=== PATIENT | male | born 1990 | race Caucasian/White ===

== ENCOUNTER 2020-10-22 14:46 | Emergency (ER) | payer BC, SELFPAY ==
--- NOTE | ~2020-10-22 | CT_ITS ---
EXAMINATION: CT ABDOMEN AND PELVIS WITHOUT CONTRAST CLINICAL INFORMATION: 30-year-old male with flank pain COMPARISON: None TECHNIQUE: Multidetector volumetric imaging was performed from the superior aspect of the liver through the pubic symphysis. Sagittal and coronal reformatted images were obtained on the technologist's workstation. This CT examination was performed using dose optimization techniques as appropriate, variously including the following: *Automated exposure control *Adjustment of mA and/or kV according to patient size (this includes techniques or standardized protocols for targeted exams where dose is matched to indication/reason for exam; i.e. extremities or head) *Use of iterative reconstruction technique DLP: 826 mGy-cm FINDINGS: Visualized lung bases demonstrate minimal dependent atelectasis. The liver is normal in size but demonstrates diffusely decreased attenuation. The gallbladder is normal in appearance. The pancreas, spleen and adrenal glands are unremarkable. Symmetrically sized kidneys. There is minimal left-sided hydronephrosis secondary to a 3 mm calculus within the left ureterovesical junction. 1 mm nonobstructing right renal calculus. No right-sided hydronephrosis appreciated. Ill-defined subcentimeter hypodensity of the right kidney is too small to accurately characterize. Normal caliber loops of small and large bowel. Normal appendix. The bladder is well-distended. The prostate gland is normal in size. No gross free pelvic fluid. No inguinal lymphadenopathy. No acute osseous abnormality. CT/CT abdomen pelvis wo con IMPRESSION: Minimal left-sided hydronephrosis secondary to a 3 mm calculus within the left ureterovesical junction.
[2020-10-22 15:28] VITALS: BP 137/84; PULSE 89; RESP 18; TEMP 36.9; O2SAT 98; BMI 38.9
[2020-10-22 18:08] LABS: Glucose Urine UA NEG (NEG); Leukocyte Esterase Urine NEG (NEG); Nitrite Urine NEG (NEG); Urine Blood 2+ (NEG); Urine Ketones NEG (NEG); Urine Protein 2+ MG/DL (NEG-TRACE)
[2020-10-22 18:09] LABS: Appearance Urine CLOUDY
[2020-10-22 18:10] LABS: Color Urine RED; WBC Urine 0 /HPF (0-4)
[2020-10-22 19:09] LABS: Basophils Percent Auto 0.3 % (0-2); Eosinophils Absolute Auto 0.2 X10*3/uL (0.0-0.4); Eosinophils Percent Auto 1.6 % (0-4); Hematocrit 43.4 % (42-52); Hemoglobin 14.8 g/dl (14.0-18.0); Imm Gran Abs Auto 0.03 X10*3/uL (0.00-0.03); Imm Gran Pct Auto 0.3 % (0.0-0.4); Lymphocytes Absolute Auto 2.8 X10*3/uL (1.2-4.9); Lymphocytes Percent Auto 28.3 % (20-40); MANUAL DIFF FLAG NO; Mean Corpuscular HGB Conc 34.1 g/dl (31.0-36.0); Mean Corpuscular Hemoglobin 29.5 pg (27.0-33.0); Mean Corpuscular Volume 86.6 fL (80-98); Mean Platelet Volume 9.5 fL (9.4-12.4); Monocytes Percent Auto 9.5 % (2-11); Platelet Count 284 X10*3/uL (160-400); Red Blood Count 5.01 X10*6/uL (4.60-5.80); Red Cell Distribution Width 12.6 % (11.0-16.0); White Blood Count 10.1 X10*3/uL (4.8-10.8)
[2020-10-22 19:35] VITALS: BP 121/61; PULSE 81; RESP 16; TEMP 37; O2SAT 99
[2020-10-22 19:40] LABS: Anion Gap 11 (12-20); Blood Urea Nitrogen 16 mg/dL (9-16); Calcium 9.1 mg/dL (8.4-10.2); Carbon Dioxide 28 mmol/L (22-29); Chloride 106 mmol/L (96-108); Creatinine Clr Calc Pharmacy 124.3; Estimated Glomerular Filt Rate > 60; Glucose Random 100 mg/dL (60-115); Potassium 3.8 mmol/L (3.3-5.1); Sodium 141 mmol/L (135-145)
--- NOTE | 2020-10-22 20:18 | PC.NURSE ---
PATIENTS FATHER ASKING WHEN IS HE GOING TO BE SEEN. UPDATED PATIENT AND FATHER. WILL BROOKE TEXT PROVIDER.
[2020-10-22] MEDS: Ketorolac Tromethamine 30 MG/ML VIAL IVPUSH (20:24)
[2020-10-22] MEDS: ondansetron HCL 4 MG/2 ML VIAL IVPUSH (20:24)
[2020-10-22 20:25] VITALS: RESP 16
[2020-10-22] MEDS: 0.9 % Sodium Chloride 1,000 ML 999 ML IV (20:25)
[2020-10-22] MEDS: Morphine Sulfate 4 MG/ML CARTRIDGE IVPUSH (20:25)
--- NOTE | 2020-10-22 20:38 | PC.NURSE ---
PT MED WITH MORPHINE, TORADOL AND ZOFRAN ORDERED FOR PAIN. PT OFF TO CT.
[2020-10-22 21:16] VITALS: RESP 16
--- NOTE | 2020-10-22 21:40 | ED_ITS ---
HPI - Abdominal Pain General Chief Complaint: Abdominal Pain Stated Complaint: BACK PAIN Time Seen by Provider: 10/22/20 20:17 Source: patient Mode of arrival: ambulatory Limitations: no limitations History of Present Illness HPI narrative: Left lower quadrant/left flank pain x1 day Denies past medical or surgical history MD elicited complaint: flank pain Onset (ago): day(s) Pain Consistency: intermittent Severity: severe Pain scale (0-10): 10 Exacerbating factors: nothing Relieving factors: nothing Associated symptoms: denies other symptoms Related Data Previous Rx's Medication Instructions Recorded ibuprofen 800 mg PO Q8H PRN #30 tab 10/22/20 oxycodone 5 mg PO Q8H PRN 3 Days #10 tab 10/22/20 tamsulosin [Flomax] 0.4 mg PO DAILY #14 cap 10/22/20 Allergies Allergy/AdvReac Type Severity Reaction Status Date / Time No Known Allergies Allergy Verified 10/22/20 15:30 Review of Systems Review of Systems Constitutional: No Weight loss, No Fever, No Chills, No Night Sweats, No Fatigue, No Malaise ENT/Mouth: No Hearing loss, No Ear Pain, No Nasal Congestion, No Sinus Pain, No Hoarseness, No sore throat, No Rhinorrhea, No Swallowing Difficulty Eyes: No Eye Pain, No Swelling, No Redness, No Foreign Body, No Discharge, No Vision Changes Cardiovascular: No Chest Pain, No SOB, No Dyspnea on Exertion, No Orthopnea, No Edema, No Palpitations Respiratory: No Cough, No Sputum, No Wheezing, No Dyspnea Gastrointestinal: No Nausea, No Vomiting, No Diarrhea, No Constipation, + abdominal Pain, No Hematochezia, No Melena Genitourinary: No Dysuria, No Urinary Frequency, No Hematuria, No Urinary Incontinence, No Urgency, + Flank Pain, No Urinary Flow Changes, No Hesitancy Musculoskeletal: No joint pain, No Myalgias, No Joint Swelling Skin: No Skin Lesions, No rash Neuro: No Weakness, No Numbness, No Paresthesias, No Loss of Consciousness, No Dizziness, No Headache Psych:No Social Issues Heme/Lymph: No Bruising, No Bleeding,No Lymphadenopathy Endocrine: No Polyuria, No Polydipsia, No Temperature Intolerance Yes all other systems are reviewed and are negative Physical Exam Vital Signs: Vital Signs: Last Vital Signs Temp 98.6 F 10/22/20 19:35 Pulse 81 10/22/20 19:35 Resp 16 10/22/20 21:16 BP 121/61 10/22/20 19:35 Pulse Ox 99 10/22/20 19:35 Body Mass Index 38.9 Reviewed Const: General: cooperative; No acute distress or intoxicated appearing Nutritional Appearance: average body habitus Orientation/consciousness: patient oriented x3 HENMT: Head: Yes normal to inspection Ears: hearing grossly normal bilaterally Eyes: General: appearance normal, both eyes and all related structures Visual Daniel: normal visual daniel by confrontation Neck: Neck: Yes normal visual inspection, No positive Brudzinski's sign, No positive Kernig's sign and No tender Thyroid: Thyroid normal Chest: Chest palpation & inspection: normal inspection of the chest Resp: Effort & Inspection: normal respiratory effort Auscultation: clear to auscultation bilaterally Cardio: Jugular venous distension: no JVD Rhythm: regular rhythm Heart sounds: S1 normal heart sound present and S2 normal heart sound present GI: Inspection: Yes normal to inspection Palpation (GI): Soft to palpation Percussion: Yes normal to percussion Auscultation: normal bowel sounds Back/Spine/Pelvis: Back: CVA tenderness (Left flank) Skin: General skin exam: no rashes or lesions noted Neuro: General: patient oriented x3 Extrem: General: Yes normal to inspection Course Reevaluation(s) Reevaluation #1: Feels much better after IV fluids, Toradol, morphine. UA with RBC otherwise not infected Labs otherwise stable. Abdominal pelvis CT shows Minimal left-sided hydronephrosis secondary to a 3 mm calculus within the left ureterovesical junction. Will be discharged with antiemetic, Flomax and analgesia with urine strainer and urology follow-up. Feels comfortable plan. Stable for discharge. MDM - Abdominal Pain Medical Records Attestation: I reviewed the patient's medical records. Lab Data Attestation: I reviewed the patient's lab results. Result diagrams: 10/22/20 18:49 10/22/20 18:49 Labs: Lab Results 10/22/20 10/22/20 10/22/20 Range/Units 17:22 18:49 18:49 WBC 10.1 (4.8-10.8) X10*3/uL RBC 5.01 (4.60-5.80) X10*6/uL Hgb 14.8 (14.0-18.0) g/dl Hct 43.4 (42-52) % MCV 86.6 (80-98) fL MCH 29.5 (27.0-33.0) pg MCHC 34.1 (31.0-36.0) g/dl RDW 12.6 (11.0-16.0) % Plt Count 284 (160-400) X10*3/uL MPV 9.5 (9.4-12.4) fL Immature Gran % (Auto) 0.3 (0.0-0.4) % Neut % (Auto) 60.0 (45-73) % Lymph % (Auto) 28.3 (20-40) % Island % (Auto) 9.5 (2-11) % Eos % (Auto) 1.6 (0-4) % Baso % (Auto) 0.3 (0-2) % Lymph # (Auto) 2.8 (1.2-4.9) X10*3/uL Island # (Auto) 1.0 (0.1-1.2) X10*3/uL Eos # (Auto) 0.2 (0.0-0.4) X10*3/uL Baso # (Auto) 0.0 (0.0-0.2) X10*3/uL Abs Immat Gran (auto) 0.03 (0.00-0.03) X10*3/uL Absolute Neuts (auto) 6.0 (2.0-8.3) X10*3/uL Absolute Nucleated RBC 0.000 (0.0-0.012) X10*3/uL Nucleated RBC % (auto) 0.0 (0.0-0.2) /100WBC Sodium 141 (135-145) mmol/L Potassium 3.8 (3.3-5.1) mmol/L Chloride 106 (96-108) mmol/L Carbon Dioxide 28 (22-29) mmol/L Anion Gap 11 L (12-20) BUN 16 (9-16) mg/dL Creatinine 0.91 (0.5-1.4) mg/dL Estim Creat Clear Calc 124.3 Estimated GFR > 60 Random Glucose 100 (60-115) mg/dL Calcium 9.1 (8.4-10.2) mg/dL Urine Color RED Urine Appearance CLOUDY Urine pH 7.0 (5.0-8.0) Ur Specific [place] 1.020 (1.005-1.025) Urine Protein 2+ H (NEG-TRACE) MG/DL Urine Glucose (UA) NEG (NEG) MG/DL Urine Ketones NEG (NEG) MG/DL Urine Blood 2+ H (NEG) Urine Nitrite NEG (NEG) Ur Leukocyte Esterase NEG (NEG) Urine RBC 76-150 H (0) /HPF Urine WBC 0 (0-4) /HPF Ur Squamous Epith Cells NONE /LPF Urine Bacteria NONE /LPF Imaging Data Abdominal/pelvis CT: Radiologist's impression: [address] Scan ReportSigned Patient: Avinash Jernigan [facility]#: [id number]: 1990Acct:[id number]/Sex: 30 / MADM Date: 10/22/20Loc: [address]: Ordering Physician: Coy Diana NP Date of Service: 10/22/20 Procedure(s): CT abdomen pelvis wo con Accession Number(s): [id number] cc: Coy Diana NP~ EXAMINATION: CT ABDOMEN AND PELVIS WITHOUT CONTRAST CLINICAL INFORMATION: 30-year-old male with flank pain COMPARISON: None TECHNIQUE: Multidetector volumetric imaging was performed from the superior aspect of the liver through the pubic symphysis. Sagittal and coronal reformatted images were obtained on the technologist's workstation. This CT examination was performed using dose optimization techniques as appropriate, variously including the following: *Automated exposure control *Adjustment of mA and/or kV according to patient size (this includes techniques or standardized protocols for targeted exams where dose is matched to indication/reason for exam; i.e. extremities or head) *Use of iterative reconstruction technique DLP: 826 mGy-cm FINDINGS: Visualized lung bases demonstrate minimal dependent atelectasis. The liver is normal in size but demonstrates diffusely decreased attenuation. The gallbladder is normal in appearance. The pancreas, spleen and adrenal glands are unremarkable. Symmetrically sized kidneys. There is minimal left-sided hydronephrosis secondary to a 3 mm calculus within the left ureterovesical junction. 1 mm nonobstructing right renal calculus. No right-sided hydronephrosis appreciated. Ill-defined subcentimeter hypodensity of the right kidney is too small to accurately characterize. Normal caliber loops of small and large bowel. Normal appendix. The bladder is well-distended. The prostate gland is normal in size. No gross free pelvic fluid. No inguinal lymphadenopathy. No acute osseous abnormality. CT/CT abdomen pelvis wo con IMPRESSION: Minimal left-sided hydronephrosis secondary to a 3 mm calculus within the left ureterovesical junction. Dictated By:EDDI KELLEY MDSigned By:<Electronically signed by EDDI KELLEY MD in OV>10/22/202123 DD/ 17TD/TT: Classifier Operator: PD Discharge Plan Discharge Clinical Impression: Hydronephrosis, Kidney stone on left side Patient Disposition: Home, Self-Care Instructions: Kidney Stones (ED), How to Strain Your Urine (ED), Hydronephrosis (ED) Additional Instructions: The CT scan shows that you have a small 3 mm stone in the left uterus this is that tube depth passes from the kidney to the bladder and the stone is at the very tip of this. You should be able to pass this I would like for you to push fluids Take medication prescribed For drep-uk-adnphtst pain take ibuprofen For severe pain take oxycodone Return if any concerns or worsening symptoms otherwise follow-up with your urologist Thank you Prescriptions: New oxycodone 5 mg tablet 5 mg PO Q8H PRN (Reason: pain) 3 Days Qty: 10 RF: 0 ibuprofen 800 mg tablet 800 mg PO Q8H PRN (Reason: pain) Qty: 30 RF: 0 tamsulosin [Flomax] 0.4 mg capsule 0.4 mg PO DAILY Qty: 14 RF: 0 Referrals: Yassine Gardner MD [Physician] - 3 days PMF Past Medical History Surgical History Hx of tonsillectomy Social History Social History Alcohol intake: unknown Smoking Status: Unknown if ever smoked Use of substances other than those prescribed or required for medical reasons: Unknown Advance Directives: No Advance Directives Information Provided: Yes
== END 2020-10-22 22:07 | disposition home or self-care (01) ==
PROVIDERS: Emergency Medicine; Emergency Provider Emergency Medicine; PCP Family Medicine
DX: N13.2 Hydronephrosis with renal and ureteral calculous obstruction (principal)
CPT/HCPCS: 36415; 74176; 80048; 81001; 85025; 96361; 96374; 96375; 99284; J1885; J2270; J2405

== ENCOUNTER 2021-02-07 11:40 | Outpatient (REF) | payer BC, SELFPAY ==
[2021-02-07 12:40] LABS: Cholesterol 141 mg/dL; Glucose Fasting 97 mg/dL (60-99); HDL Cholesterol 34 mg/dL; LDL Cholesterol Calculated 96 mg/dl; Triglycerides 55 mg/dL
== END 2021-02-07 11:41 | disposition home or self-care (01) ==
LOC: HO.LAB 11:40
PROVIDERS: PCP Family Medicine; Visit Provider Family Medicine
DX: Z82.49 Family history of ischemic heart disease and other diseases of the circulatory system (principal)
CPT/HCPCS: 36415; 80061; 82947